=== PATIENT | male | born 1945 | race Caucasian/White ===

== ENCOUNTER → 2016-07-03 | Outpatient (CLI) | payer OTHER ==
[~2016-07-03] MED LIST: ASPI81TA2 PO; INSU100V31 SQ
--- NOTE | 2016-07-03 10:57 | RAD ---
INDICATION:Gastroparesis COMPARISON: None. FINDINGS: 2 mCi of sulfur colloid was administered orally with a liquid meal followed by scintigraphic images of the abdomen. Time to half emptying for liquids is 72 minutes. IMPRESSION: Time to half emptying for liquids is 72 minutes.
== END | disposition home or self-care (01) ==
LOC: NM 08:32
PROVIDERS: ATTEND Family Medicine
DX: R10.84 Generalized abdominal pain (principal); K31.84 Gastroparesis
CPT/HCPCS: 78264; A9541